=== PATIENT | male | born 1950 | race Asian ===

== ENCOUNTER 2023-12-29 14:13 | Inpatient (IN) | payer BC, OTHER ==
[~2023-12-29] VITALS: Ht 180.3 cm; Wt 77.1 kg
[2023-12-29 14:30] VITALS: BP 122/68; PULSE 98; RESP 15; TEMP 98.3; O2SAT 100
[2023-12-29 15:12] LABS: BASOPHILS # (AUTO) 0.1 K/uL (0.00-0.22); BASOPHILS % (AUTO) 0.7 % (0.0-2.0); EOSINOPHILS # (AUTO) 0.3 K/uL (0-0.4); HEMATOCRIT 33.5 % (36-52); HEMOGLOBIN 11.2 g/dL (12.0-18.0); LYMPHOCYTES # (AUTO) 2.5 K/uL (2.0-11.5); LYMPHOCYTES % (AUTO) 29.2 % (20.5-51.1); MEAN CORPUSCULAR HEMOGLOBIN 35 pg (27-31); MEAN CORPUSCULAR HGB CONC 33 g/dL (33-37); MEAN CORPUSCULAR VOLUME 104.1 fL (80-94); MONOCYTES # (AUTO) 0.7 K/uL (0.8-1.0); MONOCYTES % (AUTO) 8.6 % (1.7-9.3); NEUTROPHILS % (AUTO) 58.5 % (42.2-75.2); PLATELET COUNT (AUTO) 130 K/uL (140-450); RED BLOOD CELL COUNT(AUTO) 3.22 MIL/uL (4.20-6.10); WHITE BLOOD COUNT (AUTO) 8.6 K/uL (4.8-10.8)
[2023-12-29] MEDS: ALBUTEROL 0.083% 2.5 MG/3 ML NEBU INH ONE (15:29)
[2023-12-29] MEDS: IPRATROPIUM 0.02% 0.5 MG/2.5 ML NEBU INH ONE (15:29)
[2023-12-29 15:34] VITALS: PULSE 104; RESP 22; O2SAT 94
[2023-12-29 15:35] LABS: ALANINE AMINOTRANSFERASE 54 U/L (12-78); ALBUMIN 1.6 g/dL (3.4-5.0); ALKALINE PHOSPHATASE 338 U/L (50-136); ASPARTATE AMINOTRANSFERASE 58 U/L (15-37); BILIRUBIN,DIRECT 1.5 mg/dL (0.0-0.3); TOTAL BILIRUBIN 2.1 mg/dL (0.0-1.0); TOTAL PROTEIN, SERUM 6.9 g/dL (6.4-8.2)
[2023-12-29 16:10] LABS: INR 1.09 (0.8-1.2); PROTHROMBIN TIME 11.4 secs (10.8-13.4)
[2023-12-29 16:12] LABS: LACTIC ACID 3.4 mmol/L (0.4-2.0)
[2023-12-29 16:30] LABS: BLOOD GAS HCO3 24.9 mmol/L (22-26); BLOOD GAS PCO2 36.7 mmHg (35-45); BLOOD GAS PO2 80.9 mmHg (75-100)
[2023-12-29 16:31] LABS: BLOOD GAS BASE EXCESS 1.1 mmol/L (-2.0-2.0); BLOOD GAS O2 SAT% 96.2 % (92.0-98.5)
[2023-12-29 16:31] LABS: ANION GAP 11.2 (8-16); CALCIUM 8.2 mg/dL (8.5-10.1); CARBON DIOXIDE 27.6 mmol/L (21-32); CHLORIDE 92 mmol/L (98-107); GLUCOSE 212 mg/dL (74-106); POTASSIUM 3.8 mmol/L (3.5-5.1); SODIUM SERUM 127 mmol/L (136-145); UREA NITROGEN, BLOOD 52 mg/dL (7-18)
[2023-12-29 16:33] LABS: CREATININE 4.3 mg/dL (0.6-1.3)
[2023-12-29] MEDS ORDERED: METO25TA PO (17:35)
[2023-12-29] MEDS ORDERED: ATOR10TA PO (17:35)
[2023-12-29] MEDS ORDERED: AMLO5TAB PO (17:35)
[2023-12-29] MEDS ORDERED: ALLO100T21 PO (17:35)
[2023-12-29] MEDS ORDERED: SITA50TA3 PO (17:35)
[2023-12-29] MEDS ORDERED: [UNRECOGNIZED DRUG - CODE] SQ (17:35)
[2023-12-29 18:02] VITALS: PULSE 114; RESP 22; O2SAT 94
[2023-12-29 18:10] VITALS: BP 125/60; PULSE 114; RESP 20; TEMP 97
[2023-12-29 20:00] VITALS: BP 132/90; PULSE 107; PULSE 111; RESP 20; TEMP 96.9; O2SAT 99
[2023-12-29] MEDS ORDERED: PIPERACILLIN/TAZOBACTAM 3.375 GM in DEXTROSE 5% 50 ML IV SCH (21:00)
[2023-12-29] MEDS: PIPER/TAZO 2.25GM/D5W PREMIX 50 ML IV SCH (21:00)
[2023-12-29] MEDS: PANTOPRAZOLE 40 MG INJ VIAL IVP SCH (23:00)
[2023-12-29] MEDS: PIPERACILLIN/TAZOBACTAM 2.25 GM VIAL IV ONE (23:02)
[2023-12-29] MEDS: methylPREDNISolone SS 40 MG/ML VIAL IVP SCH (23:02)
[2023-12-29] MEDS: HYDROcodone/APAP 5/325 MG 1 TAB TAB PO PRN (23:04)
[2023-12-30] VITALS (7 sets, daily range): BP systolic 93–128; BP diastolic 46–60; PULSE 57–104; RESP 16–20; TEMP 96.9–97.9; O2SAT 97–100
[2023-12-30] MEDS ORDERED: HEPARIN PER PHARMACY MC PRN (02:10)
[2023-12-30] MEDS: hePARIN / DEXT 5% PREMIX 250 ML IV PRN (03:22)
[2023-12-30] MEDS: PIPERACILLIN/TAZOBACTAM 2.25 GM VIAL IV ONE (05:10)
[2023-12-30 07:18] LABS: RED BLOOD CELL COUNT(AUTO) 2.91 MIL/uL (4.20-6.10); WHITE BLOOD COUNT (AUTO) 6.5 K/uL (4.8-10.8)
[2023-12-30 07:19] LABS: HEMATOCRIT 30.3 % (36-52); LYMPHOCYTES % (AUTO) 7.9 % (20.5-51.1); MEAN CORPUSCULAR HEMOGLOBIN 34 pg (27-31); MEAN CORPUSCULAR HGB CONC 33 g/dL (33-37); MEAN CORPUSCULAR VOLUME 104.1 fL (80-94); MONOCYTES % (AUTO) 1.6 % (1.7-9.3); NEUTROPHILS % (AUTO) 90.3 % (42.2-75.2); PLATELET COUNT (AUTO) 69 K/uL (140-450); RED CELL DISTRIBUTION WIDTH 19.6 % (11.6-13.7)
[2023-12-30 07:20] LABS: BASOPHILS % (AUTO) 0.1 % (0.0-2.0); EOSINOPHILS % (AUTO) 0.1 % (0.0-4.0); LYMPHOCYTES # (AUTO) 0.5 K/uL (2.0-11.5); NEUTROPHILS # (AUTO) 5.9 K/uL (1.8-7.7)
[2023-12-30] MEDS: INSULIN LISPRO SLIDING SCALE 100 UNITS/ML VIAL SUBQ PRN (07:42)
[2023-12-30] MEDS: BLOOD GLUCOSE MONITORING 1 DEV DEV FS SCH (07:44)
[2023-12-30] MEDS: INSULIN NPH HUMAN ISOPHANE 100 UNIT/ML VIAL SUBQ SCH (07:47)
[2023-12-30 08:58] LABS: ANION GAP 14.6 (8-16); CALCIUM 8.2 mg/dL (8.5-10.1); CARBON DIOXIDE 25.1 mmol/L (21-32); CHLORIDE 98 mmol/L (98-107); CREATININE 3.4 mg/dL (0.6-1.3); GLUCOSE 174 mg/dL (74-106); POTASSIUM 4.7 mmol/L (3.5-5.1); SODIUM SERUM 133 mmol/L (136-145); UREA NITROGEN, BLOOD 33 mg/dL (7-18)
[2023-12-30] MEDS: METOPROLOL 25 MG TAB PO SCH (09:35)
[2023-12-30] MEDS: ECOTRIN 81 MG TABEC PO SCH (09:35)
[2023-12-30] MEDS: amLODIPine 5 MG TAB PO SCH (09:36)
[2023-12-30] MEDS: ATORVASTATIN 80 MG TAB PO SCH (09:36)
[2023-12-30 10:31] LABS: INR 5.46 (0.8-1.2); PROTHROMBIN TIME 52.9 secs (10.8-13.4)
[2023-12-30] MEDS ORDERED: hydrALAZINE 20 MG/ML VIAL IVP PRN (12:10)
[2023-12-30] MEDS: PIPERACILLIN/TAZOBACTAM 2.25 GM in DEXTROSE 5% 50 ML IV SCH (12:50)
[2023-12-30 14:32] LABS: PARTIAL THROMBOPLASTIN TIME > 150.0 secs (22-35.6)
[2023-12-30] MEDS: ALBUTEROL SULFATE/IPRATROPIU 3 ML SOL IH SCH (19:00)
[2023-12-30] MEDS ORDERED: HYDRAGUARD CREAM TP PRN (19:15)
[2023-12-31] VITALS (10 sets, daily range): BP systolic 96–111; BP diastolic 47–59; PULSE 69–94; RESP 18–22; TEMP 96.6–97.6; O2SAT 94–100
[2023-12-31 06:49] LABS: ANION GAP 12.1 (8-16); CARBON DIOXIDE 25.2 mmol/L (21-32); CHLORIDE 98 mmol/L (98-107); GLUCOSE 244 mg/dL (74-106); POTASSIUM 4.3 mmol/L (3.5-5.1); SODIUM SERUM 131 mmol/L (136-145)
[2023-12-31 06:51] LABS: INR 1.25 (0.8-1.2)
[2023-12-31 06:59] LABS: CREATININE 4.4 mg/dL (0.6-1.3); UREA NITROGEN, BLOOD 66 mg/dL (7-18)
[2023-12-31 07:06] LABS: HEMATOCRIT 24.9 % (36-52); HEMOGLOBIN 8.3 g/dL (12.0-18.0); MEAN CORPUSCULAR HEMOGLOBIN 35 pg (27-31); MEAN CORPUSCULAR HGB CONC 33 g/dL (33-37); MEAN CORPUSCULAR VOLUME 105.4 fL (80-94); PLATELET COUNT (AUTO) 79 K/uL (140-450); RED BLOOD CELL COUNT(AUTO) 2.36 MIL/uL (4.20-6.10); RED CELL DISTRIBUTION WIDTH 20.3 % (11.6-13.7)
[2023-12-31 07:41] LABS: MONOCYTES % (MANUAL) 10 % (5-12)
[2023-12-31 07:42] LABS: LYMPHOCYTES % (MANUAL) 7 % (20-46)
[2023-12-31 07:46] LABS: PLATELET ESTIMATE DECREASED
[2023-12-31] MEDS: NACL 0.9% IRR 250 ML BOTTLE IR SCH (12:58)
[2024-01-01] VITALS (28 sets, daily range): BP systolic 38–139; BP diastolic 21–76; PULSE 79–126; RESP 14–35; TEMP 96.4–98.1; O2SAT 81–100
[2024-01-01] MEDS: ACETAMINOPHEN 325 MG TAB PO PRN (04:42)
[2024-01-01] MEDS: ATORVASTATIN 20 MG TAB PO SCH (04:42)
[2024-01-01 07:08] LABS: BASOPHILS % (AUTO) 0.2 % (0.0-2.0); HEMATOCRIT 26.1 % (36-52); HEMOGLOBIN 8.6 g/dL (12.0-18.0); LYMPHOCYTES # (AUTO) 0.6 K/uL (2.0-11.5); LYMPHOCYTES % (AUTO) 5.5 % (20.5-51.1); MEAN CORPUSCULAR HEMOGLOBIN 35 pg (27-31); MEAN CORPUSCULAR HGB CONC 33 g/dL (33-37); MEAN CORPUSCULAR VOLUME 106.1 fL (80-94); MONOCYTES # (AUTO) 0.8 K/uL (0.8-1.0); MONOCYTES % (AUTO) 7.2 % (1.7-9.3); NEUTROPHILS # (AUTO) 9.4 K/uL (1.8-7.7); NEUTROPHILS % (AUTO) 87.1 % (42.2-75.2); PLATELET COUNT (AUTO) 93 K/uL (140-450); RED BLOOD CELL COUNT(AUTO) 2.46 MIL/uL (4.20-6.10); RED CELL DISTRIBUTION WIDTH 20.7 % (11.6-13.7); WHITE BLOOD COUNT (AUTO) 10.8 K/uL (4.8-10.8)
[2024-01-01 07:39] LABS: ANION GAP 17.5 (8-16); CALCIUM 7.8 mg/dL (8.5-10.1); CARBON DIOXIDE 21.3 mmol/L (21-32); CHLORIDE 96 mmol/L (98-107); GLUCOSE 373 mg/dL (74-106); POTASSIUM 4.8 mmol/L (3.5-5.1); SODIUM SERUM 130 mmol/L (136-145)
[2024-01-01 07:59] LABS: UREA NITROGEN, BLOOD 89 mg/dL (7-18)
[2024-01-01 08:00] LABS: CREATININE 5.2 mg/dL (0.6-1.3)
[2024-01-01] MEDS: LACTOBACILLUS RHAMNOSUS GG 1 EACH CAP PO SCH (09:46)
[2024-01-01] MEDS: MIDODRINE 5 MG TAB PO SCH (09:46)
[2024-01-01] MEDS: ALBUMIN HUMAN 25% 50 ML IV SCH ×2 (09:47→18:24)
[2024-01-01] MEDS: EPOETIN ALFA-EPBX 10,000 UNITS/ML VIAL IV SCH (11:49)
[2024-01-01] MEDS: ONDANSETRON 4 MG/2 ML VIAL IVP PRN (14:20)
[2024-01-01] MEDS: ALBUMIN HUMAN 25% 50 ML IV ONE (18:20)
[2024-01-01] MEDS: NOREPINEPHRINE 4 MG/4 ML VIAL IV ONE ×5 (19:07→23:29)
[2024-01-01] MEDS: NOREPINEPHRINE 4 MG in DEXTROSE 5% 250 ML IV PRN (19:20)
[2024-01-01] MEDS: SODIUM BICARBONATE 8.4% 100 MEQ in DEXTROSE 5% 1,000 ML IV SCH (21:00)
[2024-01-01] MEDS ORDERED: PANTOPRAZOLE 80 MG in NACL 0.9% 100 ML IV SCH (21:25)
[2024-01-01] MEDS: PHENYLEPHRINE 50 MG in NACL 0.9% 250 ML IV PRN (21:31)
[2024-01-01] MEDS: PHENYLEPHRINE 10 MG/ML VIAL ONE ×2 (21:33→21:36)
[2024-01-01] MEDS: SODIUM BICARBONATE 8.4% PFS 50 MEQ/50 ML SYR IVP ONE (21:33)
[2024-01-01] MEDS: OCTREOTIDE ACETATE 1.25 MG in NACL 0.9% 250 ML IV SCH (22:49)
[2024-01-01] MEDS: OCTREOTIDE ACETATE 1000 MCG/5 ML VIAL ONE (22:54)
[2024-01-02] VITALS: BP 93/51; PULSE 107; PULSE 96; RESP 17; TEMP 95.3; O2SAT 100
[2024-01-02 00:15] VITALS: BP 95/52; PULSE 79; RESP 14; O2SAT 100
[2024-01-02] MEDS: NOREPINEPHRINE 4 MG/4 ML VIAL IV ONE (00:18)
[2024-01-02] MEDS ORDERED: CODE BLUE PARTICIPANT 1 EA MISC MC ONE (00:45)
[2024-01-02] MEDS ORDERED: FOAM DRESSING TP SCH (09:00)
[2024-01-02] MEDS ORDERED: predniSONE 20 MG TAB PO SCH (09:00)
== END 2024-01-02 05:45 | DRG 189 ==
LOC: MED 14:13 → MTU 17:13 → MIC 01-01 19:00
PROVIDERS: ADMIT Student in an Organized Health Care Education/Training Program; ATTEND Student in an Organized Health Care Education/Training Program
PROC: 5A1D70Z Performance of Urinary Filtration, Intermittent, Less than 6 Hours Per Day (ICD-10-PCS; principal; 2023-12-29)
PROC: 5A1D70Z Performance of Urinary Filtration, Intermittent, Less than 6 Hours Per Day (ICD-10-PCS; 2024-01-01)
PROC: 02HV33Z Insertion of Infusion Device into Superior Vena Cava, Percutaneous Approach (ICD-10-PCS; 2024-01-01)
PROC: B548ZZA Ultrasonography of Superior Vena Cava, Guidance (ICD-10-PCS; 2024-01-01)
DX: J96.21 Acute and chronic respiratory failure with hypoxia (principal); E43 Unspecified severe protein-calorie malnutrition; N18.6 End stage renal disease; I13.2 Hypertensive heart and chronic kidney disease with heart failure and with stage 5 chronic kidney disease, or end stage renal disease; R18.8 Other ascites; I48.0 Paroxysmal atrial fibrillation; D69.6 Thrombocytopenia, unspecified; K74.60 Unspecified cirrhosis of liver; I50.9 Heart failure, unspecified; E78.5 Hyperlipidemia, unspecified; Z95.0 Presence of cardiac pacemaker; Z68.23 Body mass index [BMI] 23.0-23.9, adult; Z79.899 Other long term (current) drug therapy
CPT/HCPCS: 36415; 36600; 70450; 71045; 76700; 76705; 80048; 80076; 82140; 82803; 82948; 83605; 83880; 84484; 85025; 85610; 85730; 87040; 87081; 93005; 94640; 97163-GP; 97530; 99285; C9113; J1644; J1815; J2354; J2370; J2405; J2543; J2920; J3490; J7030; J7060; J7613; J7644; P9046; Q0092; Q5106